=== PATIENT | male | born 1975 | race Caucasian/White ===

== ENCOUNTER 2018-09-25 15:30 | Emergency (ER) | payer OTHER ==
[~2018-09-25] VITALS: Ht 172.7 cm; Wt 95.3 kg
[2018-09-25] MEDS ORDERED: LOSA25TA PO (15:47)
[2018-09-25] MEDS ORDERED: ASPI-482 PO (15:47)
[2018-09-25] MEDS ORDERED: ONDANSETRON PF 4 MG/2 ML VIAL. IV ONE (16:00)
[2018-09-25 16:01] LABS: BASO # 0.1 x10^3/uL (0.0-0.2); BASO % 1 % (0-3); EOS # 0.1 x10^3/uL (0.0-0.7); EOS % 1 % (0-3); HEMATOCRIT 40.3 % (39.0-53.0); HEMOGLOBIN 13.6 g/dL (13.0-17.5); LYMPH % 27 % (24-48); MEAN CORPUSCULAR HEMOGLOBIN 31 pg (25-35); MEAN CORPUSCULAR HGB CONC 34 g/dL (31-37); MEAN CORPUSCULAR VOLUME 93 fL (79-100); MONO # 0.7 x10^3/uL (0.0-1.1); MONO % 6 % (0-9); NEUT # 7.4 x10^3uL (1.8-7.7); NEUT % 66 % (31-73); PLATELET COUNT 330 x10^3/uL (140-400); RED BLOOD COUNT 4.36 x10^6/uL (4.30-5.70); RED CELL DISTRIBUTION WIDTH 12.7 % (11.5-14.5); WHITE BLOOD COUNT 11.2 x10^3/uL (4.0-11.0)
[2018-09-25 16:04] LABS: AMPHETAMINE/METHAMPHETAMINE NEG (NEG); BARBITURATES NEG (NEG); BENZODIAZEPINES NEG (NEG); BILIRUBIN,URINE NEG (NEG); CANNABINOIDS NEG (NEG); CLARITY,URINE CLEAR; COCAINE NEG (NEG); COLOR,URINE STRAW; GLUCOSE,URINE NEG (NEG); METHADONE NEG (NEG); OPIATES NEG (NEG); PHENCYCLIDINE NEG (NEG)
[2018-09-25 16:05] LABS: BACTERIA,URINE 0 /HPF (0-FEW); NITRITE,URINE NEG (NEG); RBC,URINE 0 /HPF (0-2); SQUAMOUS EPITHELIAL CELL,UR OCC /LPF; UROBILINOGEN,URINE 0.2 mg/dL (0.2 mg/dL); WBC,URINE OCC /HPF (0-4)
--- NOTE | 2018-09-25 16:12 | PHYS DOC ---
Past History Past Medical History: Hypertension Smoking: Chew Additional Smoking Information: Chews [employer] Alcohol Use: Occasionally Additional Alcohol Information: 3x a week Drug Use: None Adult General Chief Complaint Chief Complaint: Palpitations HPI HPI Patient is a 42 year old male who presents with complaining of palpitation. Patient complaining of feeling his heart beat while driving about 30 minutes ago with discomfort feeling in her upper chest and neck associated with dizziness, nausea and problem with his breathing. Patient complaining of shortness episodes of the same problem previously without known diagnosis. Patient complaining of black stool with diagnosis of ulcer one week ago that resolved spontaneously. Patient took 81 mg aspirin today. Patient had history of hypertension, chewing tobacco, and family history of coronary artery disease. Review of Systems Review of Systems Constitutional: Denies fever or chills [] Eyes: Denies change in visual acuity, redness, or eye pain [] HENT: Denies nasal congestion or sore throat [] Respiratory: Denies cough or shortness of breath [] Cardiovascular: No additional information not addressed in HPI [] GI: Denies abdominal pain, vomiting, bloody stools or diarrhea, reports nausea [ ] : Denies dysuria or hematuria [] Musculoskeletal: Denies back pain or joint pain [] Integument: Denies rash or skin lesions [] Neurologic: Denies headache, focal weakness or sensory changes , reports dizziness[] Endocrine: Denies polyuria or polydipsia [] All other systems were reviewed and found to be within normal limits, except as documented in this note. Current Medications Current Medications Current Medications Medications (Trade) Dose Ordered Sig/Reena Start Time Stop Time Status Last Admin Dose Admin Ondansetron HCl (Zofran) 4 mg 1X ONCE 09/25/18 16:00 09/25/18 16:02 DC Allergies Allergies Allergies Coded Allergies Type Severity Reaction Last Updated Verified No Known Drug Allergies 09/25/18 No Physical Exam Physical Exam Constitutional: Well developed, well nourished, mildacute distress, non-toxic appearance. [] HENT: Normocephalic, atraumatic, bilateral external ears normal, oropharynx moist, no oral exudates, nose normal. [] Eyes: PERRLA, EOMI, conjunctiva normal, no discharge. [] Neck: Normal range of motion, no tenderness, supple, no stridor. [] Cardiovascular:Heart rate regular rhythm, no murmur [] Lungs & Thorax: Bilateral breath sounds clear to auscultation [] Abdomen: Bowel sounds normal, soft, no tenderness, no masses, no pulsatile masses. [] Skin: Warm, dry, no erythema, no rash. [] Back: No tenderness, no CVA tenderness. [] Extremities: No tenderness, no cyanosis, no clubbing, ROM intact, no edema. [] Neurologic: Alert and oriented X 3, normal motor function, normal sensory function, no focal deficits noted. [] Psychologic: Affect anxious, judgement normal, mood normal. [] Current Patient Data Vital Signs Vital Signs Date Time Temp Pulse Resp B/P (MAP) Pulse Ox O2 Delivery O2 Flow Rate FiO2 09/25/18 15:49 98.5 91 16 100 Room Air Lab Results Laboratory Tests Test 09/25/18 15:43 White Blood Count 11.2 x10^3/uL (4.0-11.0) H Red Blood Count 4.36 x10^6/uL (4.30-5.70) Hemoglobin 13.6 g/dL (13.0-17.5) Hematocrit 40.3 % (39.0-53.0) Mean Corpuscular Volume 93 fL (79-100) Mean Corpuscular Hemoglobin 31 pg (25-35) Mean Corpuscular Hemoglobin Concent 34 g/dL (31-37) Red Cell Distribution Width 12.7 % (11.5-14.5) Platelet Count 330 x10^3/uL (140-400) Neutrophils (%) (Auto) 66 % (31-73) Lymphocytes (%) (Auto) 27 % (24-48) Monocytes (%) (Auto) 6 % (0-9) Eosinophils (%) (Auto) 1 % (0-3) Basophils (%) (Auto) 1 % (0-3) Neutrophils # (Auto) 7.4 x10^3uL (1.8-7.7) Lymphocytes # (Auto) 3.0 x10^3/uL (1.0-4.8) Monocytes # (Auto) 0.7 x10^3/uL (0.0-1.1) Eosinophils # (Auto) 0.1 x10^3/uL (0.0-0.7) Basophils # (Auto) 0.1 x10^3/uL (0.0-0.2) Urine Opiates Screen Neg (NEG) Urine Methadone Screen Neg (NEG) Urine Barbiturates Neg (NEG) Urine Phencyclidine Screen Neg (NEG) Urine Amphetamine/Methamphetamine Neg (NEG) Urine Benzodiazepines Screen Neg (NEG) Urine Cocaine Screen Neg (NEG) Urine Cannabinoids Screen Neg (NEG) Urine Ethyl Alcohol Neg (NEG) EKG EKG EKG interpreted by me. EKG at 1544 showed normal sinus rhythm at rate of 85, normal CA and QRS, poor R-wave progress in anteroseptal leads, no acute ST and T -wave abnormalities. Radiology/Procedures Radiology/Procedures [address] [address] IMAGING REPORT Signed PATIENT: ADIEL BAJWA ACCOUNT: [id number] : 1975 LOCATION: ER AGE: 42 SEX: M EXAM STATUS: PRE ER ORD. PHYSICIAN: ANTONIA MAHARAJ MD REASON: palpitation PROCEDURE: CHEST PA & LATERAL PA and lateral chest. HISTORY: Palpitations PA and lateral views were taken of the chest. Lungs are clear. Heart is normal in size without heart failure. There is no effusion. IMPRESSION: 1. No acute chest disease. Electronically signed by: Dallin Gardiner MD (09/25/2018 4:10 PM) [facility] DICTATED AND SIGNED BY: DALLIN GARDINER MD DATE: 09/25/18 1609 CC: CHASIDY JOSHI MD; ANTONIA MAHARAJ MD ~ Course & Med Decision Making Course & Med Decision Making Pertinent Labs and Imaging studies reviewed. (See chart for details) Evaluation of patient in ER showed 42-year-old male patient with complaining of feeling of his heartbeat with lightheadedness and nausea and shortness of breath. Patient was anxious at arrival to ER. EKG and labs was unremarkable except for mild hypokalemia of 3.3. Patient treated with Ativan and felt better. Patient usually drinks alcohol at least 3 times a week and instructed to quit drinking alcohol. Patient was advised to follow-up with his primary care physician for more evaluation of chest pain. Dragon Disclaimer Dragon Disclaimer This electronic medical record was generated, in whole or in part, using a voice recognition dictation system. Departure Departure: Impression: Primary Impression: Palpitation Additional Impressions: Hypokalemia Anxiety Tobacco abuse Tobacco abuse counseling Disposition: HOME, SELF-CARE (at 1725) Condition: IMPROVED Referrals: CHASIDY JOSHI MD (PCP) Patient Instructions: Anxiety and Panic Attacks, Hypokalemia, Palpitations, Smoking Cessation, Tips For Success Additional Instructions: Do not take caffeine Follow-up with your primary care physician in 2-3 days for more heart evaluation Return to ER if not getting better Scripts Hydroxyzine Hcl (HYDROXYZINE HCL) 25 Mg Tablet 1 TAB PO QHS PRN for ITCHING, #14 TAB Prov: ANTONIA MAHARAJ MD 09/25/18 Problem Qualifiers ANTONIA MAHARAJ MD Sep 25, 2018 16:12
[2018-09-25] MEDS ORDERED: LORazepam 2 MG/ML VIAL IV ONE (16:30)
--- NOTE | 2018-09-25 17:13 | EKG ---
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
[2018-09-25 17:15] LABS: ALBUMIN 3.7 g/dL (3.4-5.0); ALBUMIN/GLOBULIN RATIO 0.8 (1.0-1.7); CALCIUM 9.1 mg/dL (8.5-10.1); CREATININE 1.2 mg/dL (0.7-1.3); GFR 66.4; POTASSIUM 3.3 mmol/L (3.5-5.1); TOTAL BILIRUBIN 0.4 mg/dL (0.2-1.0); TOTAL PROTEIN 8.1 g/dL (6.4-8.2)
[2018-09-25] MEDS ORDERED: HYDR25TA PO ×2 (17:27→17:34)
[2018-09-25 17:36] VITALS: BP 130/84
== END 2018-09-25 17:55 | disposition home or self-care (01) ==
LOC: ER 15:30
DX: R00.2 Palpitations (principal); E87.6 Hypokalemia; F41.9 Anxiety disorder, unspecified; I10 Essential (primary) hypertension; F17.220 Nicotine dependence, chewing tobacco, uncomplicated; Z71.6 Tobacco abuse counseling
CPT/HCPCS: 36415; 71046; 80053; 80307; 81001; 82550; 83690; 83735; 83880; 84443; 84484; 85025; 93005; 96374; 96375; 99284; J2060; J2405